=== PATIENT | male | born 1975 | race Hispanic/Latino ===

== ENCOUNTER 2023-06-07 18:31 | Inpatient (IN) | payer OTHER, SELFPAY ==
[~2023-06-07 18:31] MED LIST: Iopamidol 300 61% 100 ML VIAL FS ONE
[2023-06-07 19:58] LABS: #Basophils 0.1 10x3/uL (0.0-0.2); #Eosinphils 0.1 10x3/uL (0.0-0.5); #Monocytes 0.7 10x3/uL (0.0-1.1); #Neutrophils 11.4 10x3/uL (1.5-8.4); %Basophils 0.4 % (0.0-2.0); %Eosinophils 0.4 % (0.0-6.0); %Lymphocytes 13.7 % (18.0-47.0); %Monocytes 4.8 % (0.0-10.0); %Neutrophils 80.4 % (40.0-75.0); Hematocrit 46.2 % (38.8-50.0); Mean Corpuscular HGB CONC 34.6 g/dL (32.0-36.0); Mean Corpuscular Hemoglobin 30.8 pg (27.0-33.0); Platelet Count 248 10x3/uL (150-450); RBC Distribution Width 12.7 % (11.5-14.5); Red Blood Cell (RBC) Count 5.19 10x6/uL (4.32-5.72); White Blood Cell (WBC) Count 14.2 10x3/uL (3.5-10.5)
[2023-06-07] MEDS ORDERED: Ondansetron ODT 4 MG TAB ONE (19:59)
[2023-06-07 20:11] LABS: ALT (SGPT) 67 U/L (8-55); AST (SGOT) 28 U/L (5-34); Albumin 4.7 g/dL (3.5-5.0); Alkaline Phosphatase 98 U/L (40-110); Anion Gap 15 mmol/L (10-20); BUN (Urea Nitrogen) 13 mg/dL (8.9-20.6); Bilirubin, Total 0.9 mg/dL (0.2-1.2); Calc. Creatinine Clearance 0 mL/min (70-130); Calcium 9.9 mg/dL (7.8-10.44); Carbon Dioxide 27 mmol/L (22-29); Chloride 101 mmol/L (98-107); Estimated GFR 81; Globulin 4.3 g/dL (2.4-3.5); Glucose 118 mg/dL (70-105); Lipase 4 U/L (8-78); Potassium 3.8 mmol/L (3.5-5.1); Sodium 139 mmol/L (136-145)
[2023-06-07] MEDS ORDERED: Ondansetron PF 4 MG/2 ML Vial ONE (20:13)
[2023-06-07] MEDS ORDERED: Morphine 4 MG/ML VIAL ONE ×2 (20:13→22:05)
[2023-06-07 20:35] LABS: Troponin I Less than 0.010 ng/mL (< 0.028)
[2023-06-07 21:46] LABS: Bilirubin Neg (Negative); Blood, Urine Negative (Negative); Clarity Clear (Clear); Glucose, Urine (Dipstick) Normal (Negative); Ketone, Urine Negative (Negative); Leukocyte Negative (Negative); Nitrite Negative (Negative); Protein, Urine (Dipstick) Negative (Neg-Trace); Specific Gravity, Urine 1.015 (1.005-1.030); Urobilinogen Normal mg/dL (Less than 2)
[2023-06-07 22:06] LABS: Bacteria/HPF None Seen HPF (None Seen); CAUTI Indications for Culture Pelvic or flank pain; RBC/HPF None Seen HPF (0-3); Squamous Epithelial 0-3 HPF (0-3); WBC/HPF None Seen HPF (0-3)
[2023-06-07] MEDS ORDERED: Piperacillin/Tazobactam 4.5 GM VIAL ONE (22:06)
[2023-06-07 22:07] LABS: Urine Culture Reflex No No
[2023-06-08 00:26] VITALS: BMI 29.0
[2023-06-08] MEDS ORDERED: Acetaminophen 325 MG TAB PO PRN (00:45)
[2023-06-08] MEDS ORDERED: Ondansetron ODT 4 MG TAB SL PRN (00:45)
[2023-06-08] MEDS ORDERED: Lactated Ringer's 1,000 ML IV SCH ×2 (00:45→07:00)
[2023-06-08] MEDS ORDERED: Ondansetron PF 4 MG/2 ML Vial IVP PRN ×2 (00:45→06:58)
[2023-06-08] MEDS: Morphine 4 MG/ML VIAL SLOW IVP PRN ×2 (02:40→08:36)
[2023-06-08] MEDS ORDERED: Piperacillin/Tazobactam 3.375 GM in Sodium Chloride 0.9% 100 ML IVPB SCH ×2 (03:00→11:00)
[2023-06-08 04:21] LABS: ALT (SGPT) 56 U/L (8-55); AST (SGOT) 24 U/L (5-34); Albumin 4.1 g/dL (3.5-5.0); Alkaline Phosphatase 87 U/L (40-110); Anion Gap 15 mmol/L (10-20); BUN (Urea Nitrogen) 11 mg/dL (8.9-20.6); Bilirubin, Total 1.3 mg/dL (0.2-1.2); Calc. Creatinine Clearance 126 mL/min (70-130); Calcium 8.8 mg/dL (7.8-10.44); Carbon Dioxide 22 mmol/L (22-29); Chloride 103 mmol/L (98-107); Estimated GFR 92; Globulin 3.8 g/dL (2.4-3.5); Glucose 116 mg/dL (70-105); Potassium 3.7 mmol/L (3.5-5.1); Protein, Total 7.9 g/dL (6.0-8.3); Sodium 136 mmol/L (136-145)
[2023-06-08 04:28] LABS: #Eosinphils 0.1 10x3/uL (0.0-0.5); #Monocytes 0.8 10x3/uL (0.0-1.1); #Neutrophils 10.4 10x3/uL (1.5-8.4); %Basophils 0.3 % (0.0-2.0); %Eosinophils 0.8 % (0.0-6.0); %Lymphocytes 15.6 % (18.0-47.0); Hematocrit 43.2 % (38.8-50.0); Hemoglobin 14.9 g/dL (13.5-17.5); Mean Corpuscular HGB CONC 34.5 g/dL (32.0-36.0); Mean Corpuscular Hemoglobin 30.7 pg (27.0-33.0); Mean Corpuscular Volume 89.1 fl (81.2-95.1); Mean Platelet Volume 10.3 fl (7.4-10.4); Platelet Count 229 10x3/uL (150-450); RBC Distribution Width 12.8 % (11.5-14.5); Red Blood Cell (RBC) Count 4.85 10x6/uL (4.32-5.72); White Blood Cell (WBC) Count 13.6 10x3/uL (3.5-10.5)
[2023-06-08] MEDS ORDERED: hydrALAZINE 20 MG/ML VIAL SLOW IVP PRN (06:58)
[2023-06-08] MEDS ORDERED: Glucagon 1 MG/ML KIT IM PRN (06:58)
[2023-06-08] MEDS ORDERED: Mag-Al 1200 mg/1200 mg/30 ML UDCUP PO PRN (06:58)
[2023-06-08] MEDS ORDERED: Promethazine HCl 25 MG/ML VIAL IM PRN (06:58)
[2023-06-08] MEDS ORDERED: Dextrose 50% Abboject 50 ML SYRINGE SLOW IVP PRN (06:58)
[2023-06-08] MEDS ORDERED: Ipratropium/Albuterol 3 ML NEB NEB PRN (06:58)
[2023-06-08] MEDS ORDERED: Dextrose 5% in Water 1,000 ML IV PRN (06:58)
[2023-06-08] MEDS ORDERED: Calcium Carbonate 500 MG ChewTAB PO PRN (06:58)
[2023-06-08] MEDS ORDERED: Famotidine 20 MG TAB PO SCH (09:00)
[2023-06-08] MEDS ORDERED: FLU VACC QS2023-24(6MOS UP)/PF 60 MCG/0.5 ML SYRINGE IM ONE (09:00)
[2023-06-08] MEDS ORDERED: Famotidine/PF 20 mg/2ml Vial SLOW IVP SCH (09:00)
[2023-06-08] MEDS ORDERED: Bupivacaine PF 0.5% 30 ML VIAL ONE (10:31)
[2023-06-08] MEDS ORDERED: EPINEPHrine 1 MG/ML VIAL ONE (10:31)
[2023-06-08] MEDS ORDERED: HYDROcodone/Acetaminophen 5/325 mg Tablet PO PRN ×4 (14:40→15:45)
[2023-06-08] MEDS ORDERED: Morphine 4 MG/ML VIAL SLOW IVP PRN (14:40)
[2023-06-08] MEDS ORDERED: Morphine 2 MG/ML VIAL SLOW IVP PRN (14:41)
[2023-06-08 16:48] VITALS: BP 140/83; TEMP 97.8
== END 2023-06-08 20:37 | disposition home or self-care (01) | DRG 419 ==
LOC: CSHERS 18:31 → CSHTELE 22:55
PROVIDERS: ADMIT Surgery; ATTEND Surgery
PROC: 0FT44ZZ Resection of Gallbladder, Percutaneous Endoscopic Approach (ICD-10-PCS; principal; 2023-06-08)
DX: K80.00 Calculus of gallbladder with acute cholecystitis without obstruction (principal)
CPT/HCPCS: 36415; 36416; 71045; 74177; 76705; 80053; 81001; 83605; 83690; 83880; 84484; 85025; 87040; 88304; 96361; 96365; 96375; 96376; C1889; J0171; J2270; J2405; J2543; J3490; J7120; Q0162; Q9967; S0020; S0028